=== PATIENT | female | born 1975 | race Caucasian/White ===

== ENCOUNTER 2024-02-06 06:45 | Outpatient (REF) | payer OTHER, SELFPAY | END 2024-02-06 06:46 | disposition home or self-care (01) | LOC: HO.UMASIMG 06:45 | PROVIDERS: Visit Provider Student in an Organized Health Care Education/Training Program | DX: Z13.89 Encounter for screening for other disorder (principal) ==

== ENCOUNTER 2024-02-29 06:52 | Outpatient (REF) | payer OTHER, SELFPAY ==
--- NOTE | ~2024-02-29 | US_ITS ---
EXAMINATION: US PELVIS CLINICAL INFORMATION: Right lower quadrant pain. Mass. Lump. COMPARISON: None available. TECHNIQUE: Ultrasound of the pelvis is performed using both transabdominal and transvaginal transducers along with Doppler. Transvaginal imaging is performed due to inadequate visualization transabdominally. FINDINGS: Uterus: The uterus is anteverted and measures 8.8 x 4.7 x 5.8 cm. Volume 127 mL The double wall endometrial thickness is 8 mm. The uterus is smooth in contour and has normal myometrial echogenicity. There are uterine fibroids: 1. Right frontal region. 2.4 x 2.9 x 2.9 cm. 2. Right distal body. 2 x 2.7 x 1.5 cm. 3. Anterior fundal. 1.4 x 1.9 x 1.5 cm Adnexa: Both ovaries are visualized. There is normal color flow to the adnexa. There is no ovarian torsion. There is no pelvic ascites or fluid collection. Right ovary measures 3.1 x 2.2 x 2.6 cm. Volume 9.1 mL. Anechoic cyst/follicle measuring 1.9 cm. Left ovary measures 2.3 x 1.8 x 1.5 cm. 3.2 mL. Other: Focal thickening of the right lower quadrant correlates to inguinal lymph nodes. These are subcentimeter lymph nodes with normal ultrasound morphology. Largest lymph node measures 2.5 x 0.8 x 1.4 cm. US/US pelvic and transvaginal IMPRESSION: 1. Multiple uterine fibroids. 2. Normal ultrasound of the ovaries. 3. Focal thickening of the right lower quadrant correlates to inguinal lymph nodes. These are subcentimeter lymph nodes with normal ultrasound morphology. Electronically signed by: Roland Corrigan MD 02/29/2024 03:05 PM EDT
== END 2024-02-29 06:53 | disposition home or self-care (01) ==
LOC: HO.UMASIMG 06:52
PROVIDERS: Visit Provider Student in an Organized Health Care Education/Training Program
DX: R19.03 Right lower quadrant abdominal swelling, mass and lump (principal)
CPT/HCPCS: 76830; 76856